=== PATIENT | female | born 1990 | race Caucasian/White ===

== ENCOUNTER 2017-07-30 14:31 | Outpatient (CLI) | payer MEDICAID ==
[2017-07-30] MEDS: TERBUTALINE 1 MG/ML INJ SC (15:26)
[2017-07-30] MEDS: LACTATED RINGER'S 500 ML IV ×2 (15:27→17:20)
[2017-07-30 16:03] LABS: RUPTURE FETAL MEMBRANES NEGATIVE (NEGATIVE)
[2017-07-30 21:56] LABS: ADD UMIC YES; UR ASCORBIC ACID NEGATIVE (NEGATIVE); UR BACTERIA MANY /HPF (NONE SEEN); UR BILIRUBIN (Dip) NEGATIVE (NEGATIVE); UR BLOOD (Dip) NEGATIVE (NEGATIVE); UR CALCIUM OXALATE CRYSTAL MANY /HPF (NONE SEEN); UR CLARITY CLOUDY (CLEAR); UR COLOR AMBER (YELLOW); UR GLUCOSE (Dip) NEGATIVE (NEGATIVE); UR KETONES (Dip) NEGATIVE (NEGATIVE); UR LEUKOCYTE ESTERASE (Dip) 3+ Leu/ul (NEGATIVE); UR MUCUS MANY /HPF (NONE SEEN); UR NITRITE (Dip) NEGATIVE (NEGATIVE); UR RBC 8 /HPF (0-5); UR SPECIFIC GRAVITY (Dip) 1.019 (1.003-1.030); UR SQUAMOUS EPITHELIAL CELL MANY /HPF (FEW); UR TOTAL PROTEIN (Dip) 1+ mg/dl (NEGATIVE); UR TRANSITIONAL EPI CELL FEW /HPF (NONE SEEN); UR UROBILINOGEN (Dip) 2+ mg/dL (NEGATIVE); UR WBC 39 /HPF (0-5)
[2017-07-30] MEDS: BETAMET NA PHOS/AC(6 MG/ML) 5ML INJ IM (23:34)
== END 2017-07-30 23:50 | disposition home or self-care (01) ==
LOC: OBT 14:31 → L-D 14:31
DX: O62.9 Abnormality of forces of labor, unspecified (principal); O23.43 Unspecified infection of urinary tract in pregnancy, third trimester; Z3A.34 34 weeks gestation of pregnancy
CPT/HCPCS: 36415; 76818; 81001; 84112; 87086; 96360; 96361; 96372

== ENCOUNTER 2017-07-31 23:23 | Outpatient (CLI) | payer MEDICAID ==
[2017-08-01] MEDS: BETAMET NA PHOS/AC(6 MG/ML) 5ML INJ IM (00:22)
== END 2017-08-01 00:59 | disposition home or self-care (01) ==
LOC: OBT 23:23 → L-D 23:36 → OBT 08-01 00:59
DX: O09.213 Supervision of pregnancy with history of pre-term labor, third trimester (principal); Z3A.34 34 weeks gestation of pregnancy
CPT/HCPCS: 96372

== ENCOUNTER 2017-08-31 13:48 | Inpatient (IN) | payer MEDICAID ==
[2017-08-31 14:28] LABS: ADD MAN DIFF? NO
[2017-08-31] MEDS ORDERED: BUTORPHANOL 2 MG INJ IV (14:30)
[2017-08-31] MEDS ORDERED: MISOPROSTOL 200 MCG TAB PR (14:30)
[2017-08-31] MEDS ORDERED: METHYLERGONOVINE 0.2 MG INJ IM (14:30)
[2017-08-31] MEDS ORDERED: LIDOCAINE 1% (MPF) 30 ML INJ INJ (14:30)
[2017-08-31] MEDS ORDERED: OXYTOCIN 30 UNITS/LR 500 ML IV (14:30)
[2017-08-31] MEDS ORDERED: CARBOPROST 250 MCG INJ IM (14:30)
[2017-08-31 14:33] LABS: WHITE BLOOD COUNT 9.5 10^3/ul (4.8-10.8)
[2017-08-31 14:33] LABS: BASOPHILS % 0.3 % (0.0-2.0); EOSINOPHILS % 0.4 % (0.0-7.0); HEMATOCRIT 37.2 % (37.0-47.0); HEMOGLOBIN 12.4 g/dl (12.0-16.0); LYMPHOCYTES # 1.9 10^3/ul (0.8-2.9); LYMPHOCYTES % 20.2 % (15.0-51.0); MEAN CORPUSCULAR HEMOGLOBIN 30.8 pg (29.0-33.0); MEAN CORPUSCULAR HGB CONC 33.3 g/dl (32.0-37.0); MEAN CORPUSCULAR VOLUME 92.5 fl (82.0-101.0); MONOCYTE # 0.8 10^3/ul (0.3-0.9); MONOCYTES % 8.1 % (0.0-11.0); NEUTROPHIL # 6.7 10^3/ul (1.6-7.5); NEUTROPHILS % 70.6 % (39.0-77.0); PLATELET COUNT 194 10^3/UL (140-415); RED BLOOD COUNT 4.02 10^6/ul (4.20-5.40); RED CELL DISTRIBUTION WIDTH 14.2 % (11.5-14.5)
[2017-08-31 14:51] LABS: INR 0.85; PARTIAL THROMBOPLASTIN TIME 24.5 Sec (25.0-35.0); PROTIME 11.7 Sec (11.9-14.9); PT RATIO 0.9
[2017-08-31] MEDS: LACTATED RINGER'S 1,000 ML IV ×4 (15:02→21:54)
[2017-08-31 15:18] LABS: HEPATITIS B SURFACE ANTIGEN NEGATIVE (NEGATIVE)
[2017-08-31] MEDS ORDERED: FENTAnyl 2MCG/ML-ROPIV 0.2% 100 ML (15:41)
[2017-08-31] MEDS ORDERED: NALOXONE (0.4 MG/ML) INJ IV (17:30)
[2017-08-31] MEDS: OXYTOCIN 30 UNITS/LR 500 ML IVPB (19:30)
[2017-08-31] MEDS: OXYTOCIN 30 UNITS/LR 500 ML IV ×2 (19:30)
[2017-08-31 22:57] LABS: RAPID PLASMA REAGIN NONREACTIVE (NR)
[2017-09-01] MEDS: FENTAnyl 2MCG/ML-ROPIV 0.2% 100 ML BAG EPI ×3 (00:22→06:52)
[2017-09-01] MEDS ORDERED: OXYCODONE/ACETAMINOPHEN (5/325) TAB PO (00:30)
[2017-09-01] MEDS: LACTATED RINGER'S 1,000 ML IV ×2 (00:34→04:54)
[2017-09-01] MEDS ORDERED: AMPICILLIN 2 GM/NS (PMX) 100 ML (05:12)
[2017-09-01] MEDS ORDERED: GENTAMICIN 80 MG/NS (PMX) 50 ML (05:12)
[2017-09-01] MEDS: AMPICILLIN 2 GM/NS (PMX) 100 ML IVPB (05:32)
[2017-09-01] MEDS: GENTAMICIN 80 MG/NS (PMX) 50 ML IVPB (05:33)
[2017-09-01] MEDS ORDERED: ACETAMINOPHEN 500 MG TAB (06:29)
[2017-09-01] MEDS: ACETAMINOPHEN 500 MG TAB PO (06:31)
[2017-09-01] MEDS: OXYTOCIN 30 UNITS/LR 500 ML IV ×3 (08:33→10:26)
[2017-09-01] MEDS: IBUPROFEN 600 MG TAB PO (09:32)
[2017-09-01] MEDS: LACTATED RINGER'S 1,000 ML IV* (10:26)
[2017-09-01] MEDS ORDERED: CARBOPROST 250 MCG INJ IM (10:30)
[2017-09-01] MEDS ORDERED: ZOLPIDEM 5 MG TAB PO (10:30)
[2017-09-01] MEDS ORDERED: OXYTOCIN 30 UNITS/LR 500 ML IV (10:30)
[2017-09-01] MEDS ORDERED: ACETAMINOPHEN 325 MG TAB PO (10:30)
[2017-09-01] MEDS ORDERED: DIPHENHYDRAMINE 25 MG CAP PO (10:30)
[2017-09-01] MEDS ORDERED: METHYLERGONOVINE 0.2 MG INJ IM (10:30)
[2017-09-01] MEDS ORDERED: MISOPROSTOL 200 MCG TAB PR (10:30)
[2017-09-01] MEDS: IBUPROFEN 800 MG TAB PO ×3 (11:42→23:53)
[2017-09-01] MEDS: SENNA/DOCUSATE NA (8.6MG/50MG) TAB PO (11:42)
[2017-09-01] MEDS: BENZOCAINE 20% 56 ML SPRAY TOP (11:42)
[2017-09-01] MEDS: WITCH HAZEL/GLYCERIN PAD PR (11:43)
[2017-09-01] MEDS: LANOLIN 7 GM TUBE TOP (11:43)
[2017-09-02] MEDS: IBUPROFEN 800 MG TAB PO ×4 (06:00→23:15)
[2017-09-02 08:08] LABS: ADD MAN DIFF? NO
[2017-09-02 08:22] LABS: BASOPHIL # 0.1 10^3/ul (0.0-0.1); BASOPHILS % 0.4 % (0.0-2.0); EOSINOPHILS # 0.2 10^3/ul (0.0-0.5); EOSINOPHILS % 1.4 % (0.0-7.0); HEMATOCRIT 33.6 % (37.0-47.0); HEMOGLOBIN 11.3 g/dl (12.0-16.0); LYMPHOCYTES # 2.7 10^3/ul (0.8-2.9); LYMPHOCYTES % 20.2 % (15.0-51.0); MEAN CORPUSCULAR HGB CONC 33.6 g/dl (32.0-37.0); MEAN CORPUSCULAR VOLUME 92.3 fl (82.0-101.0); MONOCYTE # 0.8 10^3/ul (0.3-0.9); MONOCYTES % 6.2 % (0.0-11.0); NEUTROPHIL # 9.6 10^3/ul (1.6-7.5); NEUTROPHILS % 71.3 % (39.0-77.0); PLATELET COUNT 177 10^3/UL (140-415); RED BLOOD COUNT 3.64 10^6/ul (4.20-5.40); RED CELL DISTRIBUTION WIDTH 14.6 % (11.5-14.5)
[2017-09-02 08:22] LABS: WHITE BLOOD COUNT 13.4 10^3/ul (4.8-10.8)
[2017-09-02] MEDS: SENNA/DOCUSATE NA (8.6MG/50MG) TAB PO (09:10)
[2017-09-02] MEDS: HYDROCODONE/APAP (5/325) TAB PO (09:11)
[2017-09-02] MEDS: INFLUENZA VIRUS VACCINE 0.5 ML SYG IM* (16:32)
[2017-09-03] MEDS: IBUPROFEN 800 MG TAB PO ×3 (05:26→17:34)
[2017-09-03] MEDS: MAGNESIUM HYDROXIDE 30ML CUP PO (08:47)
[2017-09-03] MEDS: SENNA/DOCUSATE NA (8.6MG/50MG) TAB PO (08:47)
[2017-09-03] MEDS: MEASLES,MUMPS,RUBELLA VACCINE INJ SC* (09:00)
[2017-09-03] MEDS: VARICELLA VACCINE LIVE/PF 1,350 UNIT/0.5 ML ML SC* (09:00)
[2017-09-03] MEDS: DIPHTH/TET/ACEL PERTUSS (ADULT) 0.5 ML VIAL IM* (12:01)
== END 2017-09-03 18:45 | disposition home or self-care (01) | DRG 775 ==
LOC: PP1 09-01 10:16 → L-D 13:48
PROVIDERS: Obstetrics & Gynecology
PROC: 4A1HXCZ Monitoring of Products of Conception, Cardiac Rate, External Approach (ICD-10-PCS; 2017-08-31)
PROC: 10E0XZZ Delivery of Products of Conception, External Approach (ICD-10-PCS; principal; 2017-09-01)
PROC: 0HQ9XZZ Repair Perineum Skin, External Approach (ICD-10-PCS; 2017-09-01)
PROC: 3E0234Z Introduction of Serum, Toxoid and Vaccine into Muscle, Percutaneous Approach (ICD-10-PCS; 2017-09-02)
PROC: 3E0234Z Introduction of Serum, Toxoid and Vaccine into Muscle, Percutaneous Approach (ICD-10-PCS; 2017-09-03)
DX: O76 Abnormality in fetal heart rate and rhythm complicating labor and delivery (principal); O70.0 First degree perineal laceration during delivery; Z3A.39 39 weeks gestation of pregnancy; Z37.0 Single live birth; Z23 Encounter for immunization
CPT/HCPCS: 62319; 85025; 85610; 85730; 86592; 86885; 86900; 86901; 87340; 88307; 90686; 90715; 90716

== ENCOUNTER 2018-08-27 13:43 | Outpatient (CLI) | payer SELFPAY, MEDICAID ==
[2018-08-27] MEDS ORDERED: LACTATED RINGER'S 1,000 ML IV (14:00)
[2018-08-27] MEDS: LACTATED RINGER'S 1,000 ML IV (14:33)
[2018-08-27] MEDS: ACETAMINOPHEN 325 MG TAB PO (14:36)
[2018-08-27 14:46] LABS: ADD MAN DIFF? NO
[2018-08-27 15:03] LABS: WHITE BLOOD COUNT 10.6 10^3/ul (4.8-10.8)
[2018-08-27 15:03] LABS: BASOPHILS % 0.2 % (0.0-2.0); EOSINOPHILS % 0.1 % (0.0-7.0); HEMATOCRIT 30.8 % (37.0-47.0); HEMOGLOBIN 10.3 g/dl (12.0-16.0); LYMPHOCYTES # 0.9 10^3/ul (0.8-2.9); LYMPHOCYTES % 8.3 % (15.0-51.0); MEAN CORPUSCULAR HGB CONC 33.4 g/dl (32.0-37.0); MEAN CORPUSCULAR VOLUME 92.8 fl (82.0-101.0); MEAN PLATELET VOLUME 9.4 fl (7.4-10.4); MONOCYTE # 1.4 10^3/ul (0.3-0.9); MONOCYTES % 13.2 % (0.0-11.0); NEUTROPHIL # 8.2 10^3/ul (1.6-7.5); NEUTROPHILS % 77.8 % (39.0-77.0); PLATELET COUNT 222 10^3/UL (140-415); RED BLOOD COUNT 3.32 10^6/ul (4.20-5.40); RED CELL DISTRIBUTION WIDTH 12.5 % (11.5-14.5)
[2018-08-27 15:23] LABS: ADD UMIC YES; UR ASCORBIC ACID NEGATIVE (NEGATIVE); UR BACTERIA FEW /HPF (NONE SEEN); UR BILIRUBIN (Dip) NEGATIVE (NEGATIVE); UR BLOOD (Dip) 1+ mg/dL (NEGATIVE); UR CLARITY SLIGHTLY CLOUDY (CLEAR); UR COLOR YELLOW (YELLOW); UR GLUCOSE (Dip) NEGATIVE (NEGATIVE); UR KETONES (Dip) 2+ mg/dL (NEGATIVE); UR LEUKOCYTE ESTERASE (Dip) 3+ Leu/ul (NEGATIVE); UR MUCUS FEW /HPF (NONE SEEN); UR NITRITE (Dip) NEGATIVE (NEGATIVE); UR RBC 6 /HPF (0-5); UR SPECIFIC GRAVITY (Dip) 1.016 (1.003-1.030); UR SQUAMOUS EPITHELIAL CELL FEW /HPF (FEW); UR TOTAL PROTEIN (Dip) 1+ mg/dl (NEGATIVE); UR UROBILINOGEN (Dip) 2+ mg/dL (NEGATIVE); UR WBC 27 /HPF (0-5)
[2018-08-27] MEDS ORDERED: CEFAZOLIN 2 GM/50 ML (PMX) 50 ML IVPB (16:00)
[2018-08-27] MEDS: CEFTRIAXONE 1 GM/50 ML (PMX) 50 ML IVPB (16:31)
[2018-08-27] MEDS: SOD CHLORIDE 0.9% 1,000 ML IV (16:31)
== END 2018-08-27 17:27 | disposition home or self-care (01) ==
LOC: OBT 13:43 → L-D 13:43 → OBT 17:27
DX: O23.42 Unspecified infection of urinary tract in pregnancy, second trimester (principal); Z3A.22 22 weeks gestation of pregnancy
CPT/HCPCS: 81001; 85025; 96360; 96361; 96365

== ENCOUNTER 2019-01-14 13:57 | Inpatient (IN) | payer MEDICAID ==
[2019-01-14] MEDS ORDERED: OXYTOCIN 30 UNITS/LR 500 ML IV ×3 (15:30→23:00)
[2019-01-14] MEDS ORDERED: MISOPROSTOL 200 MCG TAB PR ×2 (15:30→23:00)
[2019-01-14] MEDS ORDERED: METHYLERGONOVINE 0.2 MG INJ IM ×2 (15:30→23:00)
[2019-01-14] MEDS ORDERED: LIDOCAINE 1% (MPF) 30 ML INJ INJ (15:30)
[2019-01-14] MEDS ORDERED: OXYCODONE/ASPIRIN (4.88/325) TAB PO (15:30)
[2019-01-14] MEDS ORDERED: BUTORPHANOL 2 MG INJ IV (15:30)
[2019-01-14] MEDS ORDERED: IBUPROFEN 600 MG TAB PO (15:30)
[2019-01-14] MEDS ORDERED: CARBOPROST 250 MCG INJ IM ×2 (15:30→23:00)
[2019-01-14 15:58] LABS: ADD MAN DIFF? NO
[2019-01-14 16:00] LABS: BASOPHILS % 0.6 % (0.0-2.0); EOSINOPHILS # 0.1 10^3/ul (0.0-0.5); EOSINOPHILS % 1.4 % (0.0-7.0); HEMOGLOBIN 10.2 g/dl (12.0-16.0); LYMPHOCYTES # 1.8 10^3/ul (0.8-2.9); LYMPHOCYTES % 26.6 % (15.0-51.0); MEAN CORPUSCULAR HEMOGLOBIN 29.4 pg (29.0-33.0); MEAN CORPUSCULAR HGB CONC 32.9 g/dl (32.0-37.0); MEAN CORPUSCULAR VOLUME 89.3 fl (82.0-101.0); MEAN PLATELET VOLUME 10.7 fl (7.4-10.4); MONOCYTE # 0.6 10^3/ul (0.3-0.9); MONOCYTES % 9.2 % (0.0-11.0); NEUTROPHIL # 4.1 10^3/ul (1.6-7.5); NEUTROPHILS % 61.7 % (39.0-77.0); PLATELET COUNT 268 10^3/UL (140-415); RED BLOOD COUNT 3.47 10^6/ul (4.20-5.40); RED CELL DISTRIBUTION WIDTH 13.4 % (11.5-14.5)
[2019-01-14 16:00] LABS: WHITE BLOOD COUNT 6.7 10^3/ul (4.8-10.8)
[2019-01-14] MEDS: LACTATED RINGER'S 1,000 ML IV ×2 (16:15→23:10)
[2019-01-14] MEDS: OXYTOCIN 30 UNITS/LR 500 ML IV ×3 (16:18→22:45)
[2019-01-14 16:20] LABS: PROTIME 11.2 Sec (11.9-14.9); PT RATIO 0.9
[2019-01-14 16:49] LABS: HEPATITIS B SURFACE ANTIGEN NEGATIVE (NEGATIVE)
[2019-01-14] MEDS ORDERED: FENTAnyl 2MCG/ML-ROPIV 0.2% 100 ML BAG EPI (19:00)
[2019-01-14] MEDS ORDERED: NALOXONE (0.4 MG/ML) INJ IV (19:00)
[2019-01-14] MEDS ORDERED: FENTAnyl 2MCG/ML-ROPIV 0.2% 100 ML (19:07)
[2019-01-14] MEDS: MINERAL OIL LIGHT 10 ML VIAL TOP (20:51)
[2019-01-14] MEDS: LACTATED RINGER'S 1,000 ML IV* (22:45)
[2019-01-14] MEDS ORDERED: MAGNESIUM HYDROXIDE 30ML CUP PO (23:00)
[2019-01-14] MEDS ORDERED: ONDANSETRON 4 MG INJ IV (23:00)
[2019-01-14] MEDS ORDERED: ACETAMINOPHEN 325 MG TAB PO ×2 (23:00)
[2019-01-14] MEDS ORDERED: DIBUCAINE 1% 30 GM OINT TOP (23:00)
[2019-01-14] MEDS ORDERED: SENNA/DOCUSATE NA (8.6MG/50MG) TAB PO (23:00)
[2019-01-15] MEDS: OXYTOCIN 30 UNITS/LR 500 ML IV (02:26)
[2019-01-15] MEDS: LANOLIN HPA 1 PKT TOP (02:27)
[2019-01-15] MEDS: LACTATED RINGER'S 1,000 ML IV (05:49)
[2019-01-15] MEDS: LACTATED RINGER'S 1,000 ML IV* (05:49)
[2019-01-15 06:35] LABS: ADD MAN DIFF? NO
[2019-01-15 06:41] LABS: BASOPHILS % 0.4 % (0.0-2.0); EOSINOPHILS # 0.1 10^3/ul (0.0-0.5); EOSINOPHILS % 0.8 % (0.0-7.0); HEMATOCRIT 31.5 % (37.0-47.0); HEMOGLOBIN 10.2 g/dl (12.0-16.0); LYMPHOCYTES # 2.3 10^3/ul (0.8-2.9); LYMPHOCYTES % 23.7 % (15.0-51.0); MEAN CORPUSCULAR HEMOGLOBIN 28.5 pg (29.0-33.0); MEAN CORPUSCULAR HGB CONC 32.4 g/dl (32.0-37.0); MEAN PLATELET VOLUME 10.5 fl (7.4-10.4); MONOCYTE # 0.8 10^3/ul (0.3-0.9); MONOCYTES % 8.7 % (0.0-11.0); NEUTROPHIL # 6.3 10^3/ul (1.6-7.5); NEUTROPHILS % 65.9 % (39.0-77.0); PLATELET COUNT 252 10^3/UL (140-415); RED BLOOD COUNT 3.58 10^6/ul (4.20-5.40); RED CELL DISTRIBUTION WIDTH 13.3 % (11.5-14.5)
[2019-01-15 06:41] LABS: WHITE BLOOD COUNT 9.6 10^3/ul (4.8-10.8)
[2019-01-15] MEDS: WITCH HAZEL/GLYCERIN PAD PR (08:34)
[2019-01-15] MEDS: BENZOCAINE 20% 56 ML SPRAY TOP (08:34)
[2019-01-15] MEDS: IBUPROFEN 600 MG TAB PO (15:41)
[2019-01-15 16:36] LABS: RAPID PLASMA REAGIN NONREACTIVE (NR)
[2019-01-16] MEDS: IBUPROFEN 600 MG TAB PO ×2 (00:25→06:08)
== END 2019-01-16 12:40 | disposition home or self-care (01) | DRG 807 ==
LOC: OBT 13:57 → L-D 13:59 → OBT 15:05 → L-D 15:05 → PP1 23:11
PROVIDERS: Obstetrics & Gynecology
PROC: 10E0XZZ Delivery of Products of Conception, External Approach (ICD-10-PCS; principal; 2019-01-14)
DX: O48.0 Post-term pregnancy (principal); Z37.0 Single live birth; Z3A.40 40 weeks gestation of pregnancy
CPT/HCPCS: 62322; 76815; 76818; 85025; 85610; 85730; 86592; 86900; 86901; 87340; 99464